=== PATIENT | male | born 1950 | race Caucasian/White ===

== ENCOUNTER 2018-09-29 04:22 | Inpatient (IN) | payer BC, SELFPAY ==
[2018-09-29] VITALS (11 sets, daily range): BP systolic 116–197; BP diastolic 72–92; PULSE 65–92; RESP 15–18; TEMP 36.4–36.8; O2SAT 92–97; BMI 40.2; BMI 39.8; BMI 39.6
--- NOTE | 2018-09-29 04:49 | CT_ITS ---
STUDY: CT ABDOMEN AND PELVIS WITH CONTRAST REASON FOR EXAM: Male, 67 years old. Right lower quadrant pain. Nausea and vomiting. Elevated white blood cell count. RADIATION DOSAGE (If Supplied By Facility): CTDIvol = ( 22.06 ) mGy, DLP = ( 1393.34 ) mGycm TECHNIQUE: Transaxial images were obtained from the dome of the diaphragm to the symphysis pubis without oral contrast. 75 IV Isovue 300 was administered. Sagittal and coronal images were reconstructed. Individualized dose optimization techniques were used for this CT. COMPARISON: None. FINDINGS: The visualized lung bases are unremarkable. The visualized portions of the heart are within normal limits. There are coronary artery calcifications. There is decreased attenuation of the liver consistent with steatosis. Normal gallbladder and extrahepatic biliary system. There is mild splenomegaly. Normal pancreas. Normal bilateral adrenal glands. As seen on axial images 62-66, there is a 1.0 x 1.0 x 1.7 cm proximal right ureteral calculus and the ureteropelvic junction. There is associated mild right hydronephrosis and there is right perinephric fat infiltration, consistent with obstructive uropathy. Overlying pyelonephritis cannot be excluded. There are 3 nonobstructive right renal calculi which range up to 6 mm. There are small left renal cyst. Otherwise, normal left kidney. Normal visualized stomach. Normal small intestine. Normal colon. The appendix is visualized on axial images 79-89 and it appears normal.. There is mild atherosclerotic calcification of the abdominal aorta, without a demonstrated aneurysm. Normal inferior vena cava. There is an enlarged lymph node between the head of the pancreas and IVC, with short axis diameter of 1.5 cm. There are small periaortic retroperitoneal lymph nodes that are normal in size and morphology. Normal urinary bladder. The prostate gland is mildly enlarged. There is an umbilical hernia which contains fat, but no bowel. There are multilevel degenerative changes of the visualized lumbar spine. There is bilateral spondylolysis at the L5-S1 level, without associated spondylolisthesis. CT/Abdomen/Pelvis W IV Cont ONLY IMPRESSION: 1 cm wide proximal right ureteral calculus at the UPJ. There is associated mild right hydronephrosis and right perinephric fat infiltration.. Multiple small nonobstructive right renal calculi. Fatty liver. Mild splenomegaly. Single mildly enlarged peripancreatic lymph node. Atherosclerosis. Mildly enlarged prostate. Electronically Signed: Gabino Martin MD at 6:54 EDT , Service support ,
--- NOTE | 2018-09-29 04:50 | ED.VISSUMM ---
- ER Visit Summary Date of Service: 09/29/18 Chief Complaint: Right lower quadrant abdominal pain History of Present Illness: The patient is a 67 M history of [id number] diabetes and hypertension. Patient is never had any prior abdominal surgery. States Sunday evening around 6 PM surrogate and right lower quadrant abdominal pain. Is gotten somewhat worse. Associated nausea vomiting. No diarrhea or constipation. No melena. No dysuria or fever. No back pain currently. Started on his right flank now is in his right lower quadrant. No history of kidney stones. Physical Examination: Older male no acute distress. Vital signs are stable. Afebrile. H EENT exam unremarkable. Neck nontender. Lungs clear to auscultation bilaterally. Heart regular rhythm no murmur. Abdomen is soft and nontender normal bowel sounds no peritoneal signs. Negative Crocker McBurney's point tenderness. He points to his right lower quadrant but he does not have reproducible pain. Both upper quadrants are unremarkable. No signs of obstruction. No pulsatile mass. Patient is moving all 4 extremities. Neurovascular intact. Calves are nontender without edema. Back exam is nontender. Neurologically is awake and alert with no focal motor deficits. Test Results: CBC White count 11.6. Hemoglobin 14. No bands. Chemistries unremarkable creatinine 1.67. UA normal except for 5-10 red cells. No bacteria no signs of infection. CT abdomen pelvis with IV contrast was done due to the right lower quadrant pain. The CAT scan showed no proximal right UPJ 1 cm stone with hydronephrosis due to ureteral obstruction Emergency Department Course and Treatment: Patient treated with IV morphine and Zofran for pain and nausea. Screening labs and a CAT scan will be obtained. Patient is required 3 different dosages of morphine to try to help control his pain. Treatment Plan: Admitted for pain control and possible urologic procedure. I did speak to Dr. Carbajal who will admit the patient. Disposition: Admission Impression: Acute right lower quadrant abdominal pain secondary to a proximal right UPJ 1 cm ureteral stone with obstruction And intractable pain and renal insufficiency This note was generated with [employer] software. It may contain incorrect words, spelling, and punctuation that were not noted in review of the chart prior to signing ED Disposition - Plan for ED Patient: Referrals: Elidia Gracia MD [Primary Care Provider] -
[2018-09-29] MEDS: Ondansetron 4 MG/2 ML Vial IV (05:05)
[2018-09-29] MEDS: Morphine 4 MG/ML Syringe 6 MG IV (05:08)
[2018-09-29 05:10] LABS: Bacteria 0 SEEN /hpf (None Seen); Mucous, Urine 0 SEEN /hpf (<or=2+); White Blood Cells 0 SEEN /hpf (0-5)
[2018-09-29 05:25] LABS: Color, Urine Yellow (Yellow); Glucose, Dipstick 50 mg/dl (Normal); Ketone-Dipstick 50 mg/dl (Negative); Leukocyte Esterase-Dipstick Negative /ul (Negative); Nitrite-Dipstick Negative (Negative); Occult Blood-Urine 250 /ul (Negative); Protein-Dipstick 100 mg/dl (Negative); Specific Gravity, Urine 1.015 (1.002-1.030); Urine Bilirubin Dipstick Negative (Negative); Urine Clarity Clear (Clear); Urine Urobilinogen Normal (Normal)
[2018-09-29 05:29] LABS: Absolute Lymphocyte Count 1.16 X10^3/ul (0.83-4.51); Absolute Neutrophil Count 9.7 X10^3/uL (2.0-7.7); Basophil# 0.02 X10^3/uL; Basophil% 0.2 % (0-1); Eosinophil# 0.08 X10^3/uL; Eosinophils% 0.7 % (0-5); Hematocrit 41.8 % (40-54); Hemoglobin 14.2 g/dl (13.0-16.5); Lymphocyte # 1.16 X10^3/ul (4.0); Mean Corpuscular Hgb 28.2 pg (27.0-32.0); Mean Corpuscular Volume 83.1 fL (80-94); Mean Platelet Vol. 9.6 fl (6.2-12.0); Monocyte# 0.59 X10^3/uL; Monocyte% 5.1 % (0-10); Neutrophil # 9.72 X10^3/uL (2.7-7.7); Neutrophil % 83.7 % (47-70); Platelet Count 141 K/mm3 (150-450); RBC Distribution Width CV 14.5 % (11.6-14.6); RBC Distribution Width SD 43.8 fl (35.1-43.9); Red Blood Count 5.03 M/mm3 (4.6-6.2); White Blood Count 11.6 K/mm3 (4.4-11.0)
[2018-09-29 05:36] LABS: Anion Gap 10 (5-15); BUN 24 mg/dL (7-18); BUN/Creat Ratio 14.4 RATIO (10-20); Chloride 104 mmol/L (98-107); Creatinine, Serum 1.67 mg/dL (0.70-1.30); EST Glomerular Filtration Rate 44 mL/min (>60); Est Glom Filt Rate - Afr Amer 53 mL/min (>60); Estimated Creatinine Clearance 42.66 ml/min; Glucose 196 mg/dL (74-106); Potassium 3.7 mmol/L (3.5-5.1); Sodium Level 142 mmol/L (136-145)
[2018-09-29 05:37] LABS: POSITIVE COUNT NO; POSITIVE DIFFERENTIAL NO; POSITIVE MORPHOLOGY NO
[2018-09-29 05:40] LABS: Red Blood Cells-Urine 5-10 SEEN /hpf (0-5); Squamous Epithelial Cells - UA 0-5 SEEN /hpf (0-5)
[2018-09-29] MEDS: morphine 8 MG/ML Syringe 6 MG IV ×2 (06:29→07:26)
[2018-09-29] MEDS: 0.9% Normal Saline 1,000 ML 999 ML IV (07:30)
--- NOTE | 2018-09-29 08:59 | HP.PCM_ITS ---
Problem List (1) Right ureteral calculus Status: Acute Comment: Large stone in the right proximal ureter causing hydronephrosis and obstruction and severe pain (2) Hydronephrosis with obstructing calculus Status: Acute Comment: Right side (3) Acute renal insufficiency Status: Acute History of Present Illness Date of Admission: 09/29/18 Chief Complaint: Right flank pain The patient is a 67 year old male who presented to the emergency room with a large obstructing stone in the proximal right ureter ureter causing severe hydronephrosis of the right kidney he has acute renal insufficiency as well he has right renal colic. Patient will be admitted for pain control plan to taken to surgery today for stent placement Past Medical History Allergies PiLL FOR POISION MIGUEL Allergy (Uncoded 09/29/18 06:32) Swelling Home Medications: Ambulatory Orders Medication Instructions Recorded Amlodipine Besylate 2.5 mg PO DAILY 09/29/18 Aspirin [Aspir 81] 1 tab PO DAILY 09/29/18 Atenolol 50 mg PO DAILY 09/29/18 Glimepiride 2 mg PO DAILY 09/29/18 Hydrochlorothiazide [Hctz] 25 mg PO DAILY 09/29/18 Latanoprost 1 drop OPHTHALMIC DAILY 09/29/18 Losartan Potassium 100 mg PO DAILY 09/29/18 Metformin HCl 850 mg PO TID 09/29/18 Potassium Chloride 10 meq PO DAILY 09/29/18 Simvastatin 10 mg PO DAILY 09/29/18 Surgical History: noncontributory Psychiatric History: No pertinent psych hx Lives: With Family Smoking Status: Former smoker Tobacco Use: Non-smoker Alcohol: None Drugs: None Review of Systems Constitutional: Denies: Chills, Fever, Weight Change HEENT: Denies: Head Aches, Sinus Congestion, Sinus Drainage Cardiovascular: Denies: Chest Pain, Palpitations Respiratory: Denies: Cough, Shortness of breath at rest, Sputum production Gastrointestinal: Reports: Abdominal Pain. Denies: Nausea, Vomiting Genitourinary: Denies: Dysuria Musculoskeletal: Denies: Joint Pain, Joint Tenderness Skin: Denies: Rash, Wounds Neurological: Denies: Numbness, Tingling, Focal weakness Psychiatric: Denies: Anxiety, Depression, Homicidal Ideations, Suicidal Ideations Hematologic/ Lymphatic: Denies: Easy Bruising, Easy Bleeding VTE Information - Inpt Only VTE Present on Admission: No VTE Mechan Device Prophylaxis: SCD's Patient Problems: Active and Suspected Problems Right ureteral calculus (Acute) Large stone in the right proximal ureter causing hydronephrosis and obstruction and severe pain Hydronephrosis with obstructing calculus (Acute) Right side Acute renal insufficiency (Acute) - Physical Exam General: Alert, Oriented x3, Cooperative HEENT: Atraumatic, PERRLA, EOMI, Normocephalic Neck: Supple, No JVD, Negative Carotid Bruits Lungs: Clear to auscultation, Normal air movement Cardiovascular: Regular rate, No murmurs Abdomen: Bowel Sounds Present, Soft, Non Tender Extremities: No edema, Capillary Refill Less than 3 Seconds Skin: No rashes, No breakdown Musculoskeletal: No Tenderness to Palpation of Joints or Extremities Neurological: Cranial nerves II-XII grossly intact Psych/Mental Status: Normal Affect, Appropriate Vital Signs Temp Pulse Resp BP Pulse Ox 97.8 F 68 16 164/83 H 97 09/29/18 08:48 09/29/18 08:48 09/29/18 08:48 09/29/18 08:48 09/29/18 08:48 Oxygen Delivery Method Room Air Weight: 118.841 kg Body Mass Index (BMI) 39.8 Laboratory Tests Past 24 Hrs 09/29/18 09/29/18 09/29/18 04:40 04:58 04:58 WBC 11.6 H RBC 5.03 Hgb 14.2 Hct 41.8 MCV 83.1 MCH 28.2 MCHC 34.0 RDW 14.5 RDW Differential 43.8 Plt Count 141 L MPV 9.6 Immature Gran % (Auto) 0.300 Neut % (Auto) 83.7 H Lymph % (Auto) 10.0 L [place] % (Auto) 5.1 Eos % (Auto) 0.7 Baso % (Auto) 0.2 Absolute Neuts (auto) 9.7 H Absolute Lymphs (auto) 1.16 Total Counted Not Reportable Sodium 142 Potassium 3.7 Chloride 104 Carbon Dioxide 28.0 Anion Gap 10 BUN 24 H Creatinine 1.67 H Estim Creat Clear Calc 42.66 Est GFR (MDRD) Af Amer 53 L Est GFR (MDRD) Non-Af 44 L BUN/Creatinine Ratio 14.4 Glucose 196 H Calcium 9.0 Urine Color Yellow Urine Clarity Clear Urine pH 6.0 Ur Specific [place] 1.015 Urine Protein 100 H Urine Glucose (UA) 50 H Urine Ketones 50 H Urine Occult Blood 250 H Urine Nitrite Negative Urine Bilirubin Negative Urine Urobilinogen Normal Ur Leukocyte Esterase Negative Urine RBC 5-10 SEEN Urine WBC 0 SEEN Ur Squamous Epith Cells 0-5 SEEN Urine Bacteria 0 SEEN Urine Mucus 0 SEEN Assessment/Plan All Active Problems Right ureteral calculus (Acute) Hydronephrosis with obstructing calculus (Acute) Acute renal insufficiency (Acute) 67-year-old male with an obstructing stone in the proximal right right ureter presents the hospital right renal colic and hydronephrosis large stone plan to admit the patient for pain control and then will plan to place a stent today, n.p.o. 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
--- NOTE | 2018-09-29 09:31 | EKG12_ITS ---
Test Reason : PRE OP Blood Pressure : / mmHG Vent. Rate : 062 BPM Atrial Rate : 062 BPM P-R Int : 150 ms QRS Dur : 094 ms QT Int : 430 ms P-R-T Axes : 049 -06 -01 degrees QTc Int : 436 ms Normal sinus rhythm Normal ECG No previous ECGs available Confirmed by DESIRE SANTANA, SIERRA ([id number]), news assignment editor RUTH HOPKINS ([id number]) on 10/07/2018 2:47:14 PM Referred By: SATISH Confirmed By:SIERRA PHIPPS MD
[2018-09-29 10:07] LABS: Hemoglobin A1c 7.2 % (4.2-6.3)
[2018-09-29 10:11] LABS: Bedside Glucose 159 mg/dL (70-110)
--- NOTE | 2018-09-29 10:26 | DCINST_ITS ---
Discharge Diet: Light diet - advance as tolerated Discharge Activity: Return to Normal Activity Call your doctor if your incision/area has: Sudden Increased Bleeding Suture Line Care: Avoid Pulling/Pushing, Avoid Pinching/Bending Allergies/Adverse Reactions: Allergies PiLL FOR POISION MIGUEL Allergy (Uncoded 09/29/18 06:32) Swelling Medications to take at Discharge Amlodipine Besylate 2.5 mg PO DAILY 09/29/18 Aspirin [Aspir 81] 1 tab PO DAILY 09/29/18 Atenolol 50 mg PO DAILY 09/29/18 Ciprofloxacin [Cipro] 500 mg PO BID #6 tab 09/29/18 Glimepiride 2 mg PO DAILY 09/29/18 Hydrochlorothiazide [Hctz] 25 mg PO DAILY 09/29/18 Hydrocodone/Acetaminophen [[place] 5-325 Tablet] 1 ea PO Q4H PRN PRN 5 Days #14 tab 09/29/18 Latanoprost 1 drop OPHTHALMIC DAILY 09/29/18 Losartan Potassium 100 mg PO DAILY 09/29/18 Metformin HCl 850 mg PO TID 09/29/18 Potassium Chloride 10 meq PO DAILY 09/29/18 Simvastatin 10 mg PO DAILY 09/29/18 The following prescriptions were given: Hydrocodone/Acetaminophen [[place] 5-325 Tablet] 1 ea PO Q4H PRN PRN 5 Days #14 tab PRN Reason: Pain Ciprofloxacin [Cipro] 500 mg PO BID #6 tab Primary Care Physician: Elidia Gracia MD [Primary Care Provider] - Test Results: Test results from this visit will be discussed in further detail at your follow- up appointment, if applicable. Please Follow Up With: Nicolas Carbajal MD When: please call to make an appointment with ravindra
[2018-09-29] MEDS: Lidocaine Jelly 2% 20 ML Syringe (URO-JET) 20 APPLIC (10:46)
[2018-09-29] MEDS: Cefazolin 1 GM/50 ML BAG IV (10:46)
--- NOTE | 2018-09-29 11:02 | PCM.OPRPT ---
Problem List (1) Right ureteral calculus Status: Acute Comment: Large stone in the right proximal ureter causing hydronephrosis and obstruction and severe pain (2) Hydronephrosis with obstructing calculus Status: Acute Comment: Right side (3) Acute renal insufficiency Status: Acute Report of Operation Date of Procedure: 09/29/18 Pre-Operative Diagnosis: Right obstructing ureteral calculi, hydronephrosis, acute renal sufficiency radiolucent stone. Post-Operative Diagnosis: Same Surgery/Procedure Performed:: Cystoscopy, right retrograde pyelogram interpretation fluoroscopic images, right stent placement Description of Surgical Findings:: 67-year-old male taken back to the operating room at the smooth induction of general anesthesia he was placed in dorsolithotomy position went into the bladder with a 21 [place] rigid cystourethroscope he did have a bilaterally obstructing prostate high riding bladder nap once inside the bladder there is no tumors or stones within the bladder identified the right ureteral orifice cannulated with a Pollick catheter did a retrograde pyelogram could see the stones in the proximal ureter at the UPJ causing obstruction it was a radiolucent stone and then advanced a wire up past the stone and then place a stent 6 Japanese by 26 cm stent did leave a string but cut it short just for safety, once stent placed, bladder drain. Type of Anesthesia:: General Drains: stent - Admit VTE Documentation VTE Present on Admission: No VTE Mechan Device Prophylaxis: SCD's
--- NOTE | 2018-09-29 11:05 | OP.PCM_ITS ---
Problem List (1) Right ureteral calculus Status: Acute Comment: Large stone in the right proximal ureter causing hydronephrosis and obstruction and severe pain (2) Hydronephrosis with obstructing calculus Status: Acute Comment: Right side (3) Acute renal insufficiency Status: Acute Report of Operation Date of Procedure: 09/29/18 Pre-Operative Diagnosis: Right obstructing ureteral calculi, hydronephrosis, acute renal sufficiency radiolucent stone. Post-Operative Diagnosis: Same Surgery/Procedure Performed:: Cystoscopy, right retrograde pyelogram interpretation fluoroscopic images, right stent placement Description of Surgical Findings:: 67-year-old male taken back to the operating room at the smooth induction of general anesthesia he was placed in dorsolithotomy position went into the bladder with a 21 [place] rigid cystourethroscope he did have a bilaterally obstructing prostate high riding bladder nap once inside the bladder there is no tumors or stones within the bladder identified the right ureteral orifice cannulated with a Pollick catheter did a retrograde pyelogram could see the stones in the proximal ureter at the UPJ causing obstruction it was a radiolucent stone and then advanced a wire up past the stone and then place a st ent 6 Citizen [place] by 26 cm stent did leave a string but cut it short just for safety, once stent placed, bladder drain. Type of Anesthesia:: General Drains: stent - Admit VTE Documentation VTE Present on Admission: No VTE Mechan Device Prophylaxis: SCD's
[2018-09-29] MEDS: Ketorolac 15 MG/ML Vial IV (12:07)
[2018-09-29] MEDS: 0.9% NaCl Peripheral Flush Adult/Peds IV (12:07)
== END 2018-09-29 13:57 | disposition home or self-care (01) | DRG 661 ==
LOC: ED 05:04 → MS3 08:10
PROVIDERS: Anesthesiology; Admitting Provider Urology; Emergency Provider Emergency Medicine; Family Provider Internal Medicine; PCP Internal Medicine; Visit Provider Urology
PROC: 0T768DZ Dilation of Right Ureter with Intraluminal Device, Via Natural or Artificial Opening Endoscopic (ICD-10-PCS; principal; 2018-09-29 10:30)
DX: N13.2 Hydronephrosis with renal and ureteral calculous obstruction (principal); I10 Essential (primary) hypertension; E11.9 Type 2 diabetes mellitus without complications; E78.00 Pure hypercholesterolemia, unspecified; G47.30 Sleep apnea, unspecified; E66.01 Morbid (severe) obesity due to excess calories; Z68.39 Body mass index [BMI] 39.0-39.9, adult; Z79.84 Long term (current) use of oral hypoglycemic drugs; Z79.82 Long term (current) use of aspirin; Z79.899 Other long term (current) drug therapy; Z87.891 Personal history of nicotine dependence
CPT/HCPCS: 74177; 76000; 80048; 81001; 82962; 83036; 85025; 93005; 99284; J7030; Q9967; A4216; C1758; C1769; C2617; J2405

== ENCOUNTER → 2018-10-03 | Outpatient (CLI) | payer BC, SELFPAY ==
[2018-09-29 10:00] VITALS: BMI 39.6
--- NOTE | 2018-10-03 14:49 | RAD_ITS ---
HISTORY: Visited ER on Sunday for kidney stone EXAMINATION/TECHNIQUE: XR Abdomen 1 View: COMPARISON: CT abdomen pelvis 09/29/18. FINDINGS: BOWEL GAS PATTERN: Non-obstructive. No bowel or stomach distention. FREE AIR: Not assessed on a single supine view. ORGANOMEGALY: Not seen. CALCIFICATIONS: Small right renal stones. The larger right UPJ stone seen on the previous study is no longer evident. LOWER CHEST: No acute pathology. BONES AND SOFT TISSUES: Interval placement of right ureteral stent. RAD/Abdomen Single View IMPRESSION: Interval placement of right ureteral stent. Right UPJ stone no longer evident. Small residual right renal stones. at 1607 Reported and signed by: Winston Eli MD Electronically Signed: Winston Eli, at 16:05 EDT Tel , Service support ,
== END | disposition home or self-care (01) ==
LOC: RAD 14:35
PROVIDERS: Family Provider Internal Medicine; PCP Internal Medicine; Referring Provider Urology; Visit Provider Urology
DX: N20.0 Calculus of kidney (principal)
CPT/HCPCS: 74018

== ENCOUNTER 2018-10-09 12:54 | Day surgery (SDC) | payer BC, SELFPAY ==
[2018-09-29 10:00] VITALS: BMI 39.6
--- NOTE | 2018-10-09 12:02 | RAD_ITS ---
STUDY: X-RAY - ABDOMEN/PELVIS REASON FOR EXAM: Male, 67 years old. Preoperative evaluation. TECHNIQUE: Single AP view of the abdomen / pelvis. COMPARISON: Comparison is made with prior study dated October 03, 2018. FINDINGS: Normal visualized lung bases. There is an unremarkable bowel gas pattern. A right-sided double-J stent catheter is seen with the proximal tip in the renal pelvis and the distal tip within the urinary bladder. A faint calcification is seen in the lower pole calyx of the right kidney. Normal soft tissue structures. Normal visualized osseous structures. RAD/Abdomen Single View IMPRESSION: A right-sided double-J stent catheter is seen. Tiny residual calculus in the lower pole calyx of the right kidney. Electronically Signed: Dayday Trinidad, at 15:53 EDT , Service support ,
[2018-10-09 13:29] VITALS: BP 140/76; PULSE 60; RESP 16; TEMP 36.6; O2SAT 97; BMI 39.5
[2018-10-09 13:46] LABS: Bedside Glucose 116 mg/dL (70-110)
[2018-10-09] MEDS: Cefazolin 2 GM in 0.9% Normal Saline 100 ML IV (14:32)
--- NOTE | 2018-10-09 14:59 | DCINST_ITS ---
Discharge Diet: Light diet - advance as tolerated Discharge Activity: Return to Normal Activity Allergies/Adverse Reactions: Allergies PiLL FOR POISION MIGUEL Allergy (Uncoded 10/09/18 13:14) Swelling Medications to take at Discharge Amlodipine Besylate 2.5 mg PO DAILY 09/29/18 Aspirin [Aspir 81] 1 tab PO DAILY 09/29/18 Atenolol 50 mg PO DAILY 09/29/18 Glimepiride 2 mg PO BID 09/29/18 Hydrochlorothiazide [Hctz] 25 mg PO DAILY 09/29/18 Latanoprost 1 drop OPHTHALMIC DAILY 09/29/18 Losartan Potassium 100 mg PO DAILY 09/29/18 Metformin HCl 850 mg PO TID 09/29/18 Potassium Chloride 15 meq PO BID 09/29/18 Simvastatin 10 mg PO DAILY 09/29/18 Allopurinol [Zyloprim] 100 mg PO DAILYCM 10/08/18 Hydrocodone/Acetaminophen [[place] 5-325 Tablet] 1 ea PO Q4H PRN PRN 5 Days #14 tab 10/09/18 The following prescriptions were given: Hydrocodone/Acetaminophen [[place] 5-325 Tablet] 1 ea PO Q4H PRN PRN 5 Days #14 tab PRN Reason: Pain Primary Care Physician: Elidia Gracia MD [Primary Care Provider] - Test Results: Test results from this visit will be discussed in further detail at your follow- up appointment, if applicable. Please Follow Up With: Nicolas Carbajal MD When: please call to make an appointment.
--- NOTE | 2018-10-09 15:23 | PCM.OPRPT ---
Report of Operation Date of Procedure: 10/09/18 Pre-Operative Diagnosis: Right kidney stone status post stent Post-Operative Diagnosis: Same Surgery/Procedure Performed:: Right extracorporeal shockwave lithotripsy Description of Surgical Findings:: 67-year-old male who underwent a cystoscopy and stent placement for a radiolucent stone on x-ray was difficult to see but on fluoroscopy were able to see the stone next to the stent in the proximal ureter right and the UPJ junction today we plan to proceed with right shockwave lithotripsy. He is also taking allopurinol and Urocit-K to dissolve the stone. 67-year-old male taken back to the operating room after smooth induction of general anesthesia he was placed supine on the table view of the fluoroscope to move around we could see the stone next to the stent in the proximal ureter right at the UPJ a total of 3000 shockwaves were delivered to the area after about 2000 shockwaves the stone was not visible anymore we completed the treatment with 3000 and total shockwaves. Left the stent in place plan is to see the patient back next week with a KUB looks clear what to do cystoscopy and stent removal. At the end of the treatment appeared to be a successful treatment but is always possible another fragment may be treated or he may need further treatments for any other fragments that were not successfully treated. Type of Anesthesia:: General Drains: stent in place - Admit VTE Documentation VTE Present on Admission: No
[2018-10-09 15:27] VITALS: BP 128/74; BP 140/76; PULSE 61; RESP 16; TEMP 37.4; O2SAT 96
[2018-10-09 15:30] VITALS: BP 120/68; BP 140/76; PULSE 59; RESP 16; O2SAT 94
[2018-10-09 15:45] VITALS: BP 131/75; BP 140/76; PULSE 69; RESP 16; O2SAT 93
[2018-10-09 15:46] LABS: Bedside Glucose 108 mg/dL (70-110)
[2018-10-09 15:50] VITALS: BP 132/76; BP 140/76; PULSE 68; RESP 16; TEMP 37; O2SAT 95
[2018-10-09 16:10] VITALS: BP 140/76
== END 2018-10-09 16:15 | disposition home or self-care (01) ==
LOC: SDC 12:57 → AC 12:58
PROVIDERS: Family Provider Internal Medicine; PCP Internal Medicine; Referring Provider Urology; Visit Provider Urology
PROC: (CPT 50590; principal; 2018-10-09 15:00)
DX: N20.0 Calculus of kidney (principal); I10 Essential (primary) hypertension; E11.9 Type 2 diabetes mellitus without complications; E78.00 Pure hypercholesterolemia, unspecified; Z87.891 Personal history of nicotine dependence; Z79.84 Long term (current) use of oral hypoglycemic drugs; Z79.82 Long term (current) use of aspirin; Z79.899 Other long term (current) drug therapy
CPT/HCPCS: 00873; 50590; 74018; 82962; J7120; J2405

== ENCOUNTER 2019-05-31 00:41 | Emergency (ER) | payer BC, SELFPAY ==
[2019-05-31] VITALS (8 sets, daily range): BP systolic 133–150; BP diastolic 62–71; PULSE 78–93; RESP 12–24; TEMP 37.3–39.4; O2SAT 94–98; BMI 43.7
--- NOTE | 2019-05-31 00:57 | EKG12_ITS ---
Test Reason : SOB Blood Pressure : / mmHG Vent. Rate : 090 BPM Atrial Rate : 090 BPM P-R Int : 144 ms QRS Dur : 090 ms QT Int : 372 ms P-R-T Axes : 009 008 092 degrees QTc Int : 455 ms Normal sinus rhythm T wave abnormality, consider lateral ischemia Abnormal ECG Confirmed by DESIRE SANTANA, SIERRA ([id number]), editor & co founder AMBER BRIGHT ([id number]) on 06/02/2019 12:19:24 PM Referred By: Elidia Gracia Confirmed By:SIERRA PHIPPS MD
--- NOTE | 2019-05-31 01:07 | ED.VIS.GEN ---
History of Present Illness Chief Complaint: Shortness of Breath Informant: Patient Narrative: Stated he has been feeling short of breath with a cough. He has had muscle aches and fatigue. He has been sleeping a lot since 2 days ago. He did get a flu shot. He has had a nonproductive cough. He developed a fever this evening. He did not notice however until he got here. No history of COPD. History of diabetes hypertension and kidney stones. Current severity is mild to moderate. Feels better with oxygen. Non-smoker. - Past Medical History (1) Right ureteral calculus Status: Acute Comment: Large stone in the right proximal ureter causing hydronephrosis and obstruction and severe pain (2) Hydronephrosis with obstructing calculus Status: Acute Comment: Right side (3) Acute renal insufficiency Status: Acute Past Medical History - Allergies and Home Meds Allergies/Adverse Reactions: Allergies PiLL FOR POISION MIGUEL Allergy (Uncoded 05/31/19 00:50) Swelling Primary Care Physician: Elidia Gracia MD [Primary Care Provider] - Prior records reviewed: Yes Past Medical History: - - See problem list, diabetes, hypertension Surgical History: noncontributory Lives: With Family Smoking Status: Never smoker Alcohol: None Drugs: None Review of Systems General: Reports: Malaise. Denies: Chills, Fever, Sweats Eyes: Denies: Visual changes - bilaterally, Diplopia ENT: Denies: Rhinorrhea, Sore throat Cardiovascular: Denies: Chest pain, Palpitations Respiratory: Reports: Dyspnea, Cough, Dyspnea on exertion Gastrointestinal: Reports: Nausea. Denies: Abdominal pain, Vomiting, Diarrhea, Melena, Hematochezia Genitourinary: Denies: Dysuria, Hematuria, Frequency Musculoskeletal: Denies: Back pain, Extremity Pain Skin: Denies: Rash, Wounds Neurological: Reports: Headache, Weakness. Denies: Numbness Physical Exam Vital Signs/Narrative: Vital Signs Temp Pulse Resp BP Pulse Ox 05/31/19 01:02 96 05/31/19 00:49 96 05/31/19 00:45 103.0 F H 93 16 150/71 H 94 General: Well nourished, Well developed, No Acute Distress Head: Normocephalic, Atraumatic Eyes: Perrl, EOMI ENT: Moist mucous membranes, No rhinorrhea Neck: Supple, Nontender Cardiovascular: Regular rate, Regular rhythm, No murmurs Respiratory: No distress, CTA bilaterally, Chest nontender Abdomen: Soft, Nontender, Nondistended, Normal bowel sounds Back: Nontender, Normal Inspection Extremities: Nontender, No edema Skin: Normal color, No rash Neurological: Alert, Oriented x3, Cranial nerves II-XII grossly intact, Normal Strength, Normal Sensation Psychological: Normal affect, Normal Mood Diagnostic/Tx/Re-eval - Medical Decision Making Given Tylenol and IV fluids. Lab work chest x-ray and EKG obtained x-ray shows a left-sided infiltrate. AG shows sinus rhythm at a rate of 90. Nonspecific changes noted. No STEMI. Lab work shows a leukocytosis with left shift. Creatinine is 1.8 up from 1.6. Troponin is negative. B natruretic peptide is just slightly elevated. I do not feel he has CHF. Influenza negative. Patient will be treated with levofloxacin. I sent a carboxyhemoglobin level at the request of the patient's family which was negative. Patient would like to be discharged. Repeat pulse ox is 95% on room air. He is resting comfortably. We will follow-up as an outpatient and return if he worsens ED Disposition - Plan for ED Patient: Disposition: Home or Assisted Living Diagnosis: Community acquired pneumonia Instructions: PNEUMONIA (Adult) Prescriptions: Levofloxacin [Levaquin] 750 mg PO DAILY #7 tab Prescription Printed Referrals: Elidia Gracia MD [Primary Care Provider] -
[2019-05-31] MEDS: Acetaminophen 500 MG Tablet 1000 MG PO (01:12)
[2019-05-31 01:23] LABS: Absolute Lymphocyte Count 1.04 X10^3/uL (0.83-4.51); Absolute Neutrophil Count 10.8 X10^3/uL (2.0-7.7); Basophil# 0.04 X10^3/uL; Basophil% 0.3 % (0-1); Eosinophil# 0.07 X10^3/uL; Eosinophils% 0.5 % (0-5); Hematocrit 40.5 % (40-54); Hemoglobin 13.2 g/dL (13.0-16.5); Lymphocyte # 1.04 X10^3/ul (4.0); Lymphocyte % 7.7 % (19-41); Mean Corp Hgb Conc 32.6 g/dL (32-36); Mean Corpuscular Hgb 27.9 pg (27.0-32.0); Mean Corpuscular Volume 85.6 fL (80-94); Mean Platelet Vol. 10.3 fl (6.2-12.0); Monocyte# 1.28 X10^3/uL; Monocyte% 9.5 % (0-10); NRBC Flagged by Analyzer 0 % (0-5); Neutrophil # 10.84 X10^3/uL (2.7-7.7); Neutrophil % 80.7 % (47-70); POSITIVE MORPHOLOGY YES; Platelet Count 147 K/mm3 (150-450); RBC Distribution Width CV 13.8 % (11.6-14.6); RBC Distribution Width SD 43.1 fl (35.1-43.9); Red Blood Count 4.73 M/mm3 (4.6-6.2); White Blood Count 13.4 K/mm3 (4.4-11.0)
[2019-05-31 01:27] LABS: Differential Indicated SCAN CRITERIA MET
[2019-05-31 01:29] LABS: Anion Gap 8 (5-15); BUN 21 mg/dL (7-18); BUN/Creat Ratio 11.3 RATIO (10-20); Calcium,Total 8.7 mg/dL (8.5-10.1); Chloride 101 mmol/L (98-107); Creatinine, Serum 1.86 mg/dL (0.70-1.30); EST Glomerular Filtration Rate 39 mL/min (>60); Est Glom Filt Rate - Afr Amer 47 mL/min (>60); Estimated Creatinine Clearance 35.25 ml/min; Glucose 231 mg/dL (74-106); Potassium 3.8 mmol/L (3.5-5.1); Sodium Level 135 mmol/L (136-145)
--- NOTE | 2019-05-31 01:50 | RAD_ITS ---
HISTORY: SOB and cough since thurs. CO2: 20 for EMS. EXAM: XR Chest 2 Views: COMPARISON: A comparison abdominal x-ray shows some of the lung bases from October 03, 2018. A CT scan of the abdomen and pelvis is from September 29, 2018. The sales and service consultant image from that CT scan extends almost up to the aortic arch. FINDINGS: # of images incl. paperwork: 2 New focal airspace disease is present within the left upper lobe. Heart is not enlarged. Moderate thoracic spondylosis may have slightly progressed since the CT scan Pulmonary vascularity is distinct. No effusions. RAD/Chest PA and Lateral IMPRESSION: Focal airspace disease within the left upper lobe likely representing pneumonia. at [id number] Reported and signed by: Luciano Fisher MD Electronically Signed: Luciano Fisher MD at 3:57 EST Tel , Service support ,
[2019-05-31 02:18] LABS: Differential Comment SCANNED; Platelet Estimate ADEQUATE (ADEQ); Polychromasia RARE
[2019-05-31 03:42] LABS: Carboxyhemoglobin Frac (CO) 1.5 % (0.0-1.5)
[2019-05-31] MEDS: levoFLOXacin 750 MG Tablet PO (04:19)
== END 2019-05-31 04:22 | disposition home or self-care (01) ==
PROVIDERS: Emergency Provider Emergency Medicine; PCP Internal Medicine; Referring Provider Internal Medicine
DX: J18.9 Pneumonia, unspecified organism (principal); I10 Essential (primary) hypertension; E11.9 Type 2 diabetes mellitus without complications; Z87.442 Personal history of urinary calculi; Z79.84 Long term (current) use of oral hypoglycemic drugs; Z79.899 Other long term (current) drug therapy
CPT/HCPCS: 71046; 80048; 82375; 84484; 85025; 87804; 93005; 94760; 96360; 99285; J7030; J7040; A4216

== ENCOUNTER → 2024-11-03 | Outpatient (CLI) | payer BC, SELFPAY | END | disposition home or self-care (01) | LOC: LABSPEC 16:55 | PROVIDERS: PCP Internal Medicine; Visit Provider Podiatrist Foot & Ankle Surgery | DX: S91.101A Unspecified open wound of right great toe without damage to nail, initial encounter (principal); X58.XXXA Exposure to other specified factors, initial encounter | CPT/HCPCS: 87070; 87077; 87205 ==

== ENCOUNTER → 2024-12-02 | Outpatient (CLI) | payer MEDICARE, OTHER, SELFPAY ==
[2024-12-02 16:14] LABS: Hematocrit 38.7 % (40-54); Hemoglobin 13.3 g/dL (13.0-16.5); Mean Corp Hgb Conc 34.4 g/dL (32-36); Mean Corpuscular Volume 84.5 fL (80-94); Mean Platelet Vol. 10.0 fl (6.2-12.0); Platelet Count 186 K/mm3 (150-450); RBC Distribution Width CV 13.4 % (11.6-14.6); RBC Distribution Width SD 41.3 fl (35.1-43.9); Red Blood Count 4.58 M/mm3 (4.6-6.2); White Blood Count 10.2 K/mm3 (4.4-11.0)
[2024-12-02 18:29] LABS: Anion Gap 18 (5-15); BUN 42 mg/dL (4-19); BUN/Creat Ratio 19.3 RATIO (10-20); CRP 4.59 mg/L (0.0-3.0); Calcium,Total 9.7 mg/dL (7.6-11.0); Carbon Dioxide 20.1 mmol/L (21.0-32.0); Chloride 102 mmol/L (98-108); Glucose 204 mg/dL (70-99); Potassium 3.7 mmol/L (3.3-5.1)
== END | disposition home or self-care (01) ==
LOC: MTLAB 14:04
PROVIDERS: PCP Internal Medicine; Referring Provider Podiatrist Foot & Ankle Surgery; Visit Provider Podiatrist Foot & Ankle Surgery
DX: L97.519 Non-pressure chronic ulcer of other part of right foot with unspecified severity (principal)
CPT/HCPCS: 36415; 80048; 83036; 85027; 85652; 86140

== ENCOUNTER → 2025-03-16 | Outpatient (CLI) | payer MEDICARE, OTHER, SELFPAY | END | disposition home or self-care (01) | PROVIDERS: PCP Internal Medicine; Referring Provider Podiatrist Foot & Ankle Surgery; Visit Provider Podiatrist Foot & Ankle Surgery | DX: L97.519 Non-pressure chronic ulcer of other part of right foot with unspecified severity (principal); L97.529 Non-pressure chronic ulcer of other part of left foot with unspecified severity | CPT/HCPCS: 87070; 87075; 87077; 87186; 87205 ==